=== PATIENT | female | born 1955 | race Asian ===

== ENCOUNTER 2017-12-18 00:07 | Emergency (ER) | payer SELFPAY ==
[2017-12-18] MEDS ORDERED: NS 0.9% 1000 ML* 2,000 ML IV ONE (00:39)
[2017-12-18] MEDS ORDERED: Ondansetron INJ* 2 MG/ML VIAL IV ONE (00:39)
[2017-12-18] MEDS ORDERED: Pantoprazole IV* 40 MG IV ONE (00:39)
[2017-12-18] MEDS ORDERED: Morphine INJ* 10 MG/ML 1 ML CARPUJECT IV ONE (00:39)
[2017-12-18 01:09] LABS: ABS Basophils 0 10^3/ul (0-0.2); ABS Eosinophils 0 10^3/ul (0-0.6); ABS Lymphocytes 1.5 10^3/ul (1.0-4.8); ABS Monocytes 0.4 10^3/ul (0-0.8); ABS Neutrophils 9.2 10^3/ul (1.5-7.7); ABS Nucleated RBC 0 10^3/ul; Eosinophil % 0.1 % (0-6); Hematocrit 40 % (35-47); Hemoglobin 13.4 g/dl (12.0-16.0); Lymphocyte % 13.6 % (25-47); Mean Corpuscular HGB Conc 34 g/dl (31-36); Mean Corpuscular Hemoglobin 30 pg (27-31); Mean Corpuscular Volume 88 fL (80-97); Mean Platelet Volume 7.6 um3 (7.4-10.4); Nucleated Red Blood Cells % 0; Platelet Count 230 10^3/ul (150-450); Red Blood Count 4.52 10^6/ul (4.0-5.4); Red Cell Distribution Width 13 % (10.5-15); White Blood Count 11.2 10^3/ul (3.5-10.8)
[2017-12-18] MEDS ORDERED: Morphine VIAL* 4 MG/ML VIAL (1 ml vial) IV ONE (01:15)
[2017-12-18 01:20] LABS: INR 0.9 (0.77-1.02)
[2017-12-18 01:26] LABS: EGFR Non-African American 83.4 (>60)
--- NOTE | 2017-12-18 02:08 | ED ---
Ryley Lopez Thomas, scribed for Weston Garay MD on 12/18/17 at 0042 . Abdominal Pain/Female - HPI Summary HPI Summary: The patient is a 62 year old female complaining of abdominal pain that began today at 20:00. She ate unknown vegetation that she found on the street today at 16:00. The pain is alleviated by pressing on the abdomen. She vomited twice. The patient also complains of diaphoresis. The patient denies diarrhea, back pain, fever, and chills. Past surgical history includes appendectomy and hysterectomy. - History of Current Complaint Chief Complaint: EDAbdPain Stated Complaint: ABD PAIN Time Seen by Provider: 12/18/17 00:25 Hx Obtained From: Patient Onset/Duration: Lasting Hours, Still Present Timing: Constant Severity Currently: Severe Pain Intensity: 8 Pain Scale Used: 0-10 Numeric Aggravating Factor(s): Nothing Alleviating Factor(s): Other: - Pressing on the abdomen Associated Signs and Symptoms: Positive: Diaphoresis, Vomiting. Negative: Diarrhea, Other: - back pain, fever, chills Allergies/Adverse Reactions: Allergies Allergy/AdvReac Type Severity Reaction Status Date / Time No Known Allergies Allergy Verified 12/18/17 00:10 PMH/Surg Hx/FS Hx/Imm Hx Endocrine/Hematology History: Denies: Hx Diabetes Cardiovascular History: Denies: Hx Hypertension - Surgical History Surgery Procedure, Year, and Place: Appendectomy, hysterectomy Infectious Disease History: No Infectious Disease History: Denies: Traveled Outside the [place] in Last 30 Days - Family History Known Family History: Positive: Other - Patient denies relevant FHx - Social History Lives: With Family Alcohol Use: None Substance Use Type: Reports: None Smoking Status (MU): Never Smoked Tobacco Review of Systems Negative: Fever, Chills Positive: Abdominal Pain, Vomiting. Negative: Diarrhea Negative: Other - back pain All Other Systems Reviewed And Are Negative: Yes Physical Exam - Summary Physical Exam Summary: VITAL SIGNS: Reviewed. GENERAL: Patient is a well-developed and nourished female who is lying comfortable in the stretcher. She appears elder. Patient is not in any acute respiratory distress. HEAD AND FACE: No signs of trauma. No ecchymosis, hematomas or skull depressions. No sinus tenderness. EYES: PERRLA, EOMI x 2, No injected conjunctiva, no nystagmus. EARS: Hearing grossly intact. Ear canals and tympanic membranes are within normal limits. MOUTH: Oropharynx within normal limits. NECK: Supple, trachea is midline, no adenopathy, no JVD, no carotid bruit, no c- spine tenderness, neck with full ROM. CHEST: Symmetric, no tenderness at palpation LUNGS: Clear to auscultation bilaterally. No wheezing or crackles. CVS: Regular rate and rhythm, S1 and S2 present, no murmurs or gallops appreciated. ABDOMEN: Soft, non-tender. There is abdominal distention. No rebound no guarding , and no masses palpated. Bowel sounds are hypoactive. EXTREMITIES: FROM in all major joints, no edema, no cyanosis or clubbing. NEURO: Alert and oriented x 3. No acute neurological deficits. Speech is normal and follows commands. SKIN: She appears pale. Triage Information Reviewed: Yes Vital Signs On Initial Exam: Initial Vitals Temp Pulse Resp BP Pulse Ox 97.8 F 68 20 135/87 99 12/18/17 00:10 12/18/17 00:10 12/18/17 00:10 12/18/17 00:10 12/18/17 00:10 Vital Signs Reviewed: Yes Diagnostics - Vital Signs Vital Signs Temp Pulse Resp BP Pulse Ox 12/18/17 00:30 65 145/87 96 12/18/17 00:24 68 96 12/18/17 00:10 97.8 F 68 20 135/87 99 - Laboratory Result Diagrams: 12/18/17 01:04 12/18/17 01:04 Lab Statement: Any lab studies that have been ordered have been reviewed, and results considered in the medical decision making process. - EKG 00:25 Cardiac Rate: NL EKG Rhythm: Sinus Rhythm - at 64 BPM EKG Interpretation: Nonspecific T-wave changes in inferior leads. Re-Evaluation - Re-Evaluation First Eval Re-Evaluation Time: 02:00 Change: Improved Comment: She feels betteer, tolerated PO, and would like to go home. Abdominal Pain Fem Course/Dx - Course Course Of Treatment: The patient is a 62 year old female complaining of abdominal pain that began today at 20:00. She ate unknown vegetation that she found on the street today at 16:00. She vomited twice. In the ED course, the patient was given IV fluids, morphine, Zofran, and Protonix. Bloodwork and EKG were obtained. I ordered a CT Abdomen/Pelvis, but the patient refused the scan. She thinks that she does not need it. The patient says if she feels worse, she will have the scan. At re-evaluation at 02:00, the patient feels better, tolerated PO intake, and would like to go home. She will be discharged home to follow up with her primary care provider. - Diagnoses Provider Diagnoses: Gastroenteritis Discharge - Sign-Out/Discharge Documenting (check all that apply): Discharge/Admit/Transfer - Discharge Plan Condition: Stable Disposition: HOME Patient Education Materials: Gastroenteritis (ED) Referrals: [facility]ERR[facility] [Outside] - 3 Days Additional Instructions: Follow up with your primary care physician in three days. If you do not have a primary care provider, you can use the [facility] physician referral service to find one and make an appointment. Return to the emergency department for any new or worsening symptoms. The documentation as recorded by the Ryley garcia Thomas accurately reflects the service I personally performed and the decisions made by me, Weston Garay MD.
[2017-12-18 02:23] VITALS: BP 159/99
== END 2017-12-18 02:15 | disposition home or self-care (01) ==
LOC: ED 00:07
DX: K52.9 Noninfective gastroenteritis and colitis, unspecified (principal); R10.9 Unspecified abdominal pain; R11.0 Nausea
CPT/HCPCS: 36415; 80053; 82150; 82550; 83605; 83690; 83735; 84484; 85025; 85610; 85730; 86140; 93005; 96374; 96375; 99284; J2270; J2405

== ENCOUNTER 2017-12-19 15:12 | Emergency (ER) | payer SELFPAY ==
--- NOTE | 2017-12-19 15:29 | UC ---
Nausea/Vomiting/Diarrhea HPI - HPI Summary HPI Summary: 62 y/o female presents to the urgent care accompany by daughter who translates c /o nausea and vomiting w/ abdominal pain since yesterday. Daughter states her mother ate a vegetation she found in the street and then she developed episodes vomiting, diaphoresis and severe abdominal pain around 1600Pm yesterday. Pt was seen in the ER and got IV fluids, Morphin, Protonix and Blood work. She was D/ C home Dx w/ Gastroenteritis. She felt better over night but this morning when she drank water, vomiting returned w/ 4 episodes. last episodes was about 1hr ago. Pt has not eaten anything since yesterday. Pt denies hematemesis, fever, SOB, chest pain, diarrhea, urinary symptoms, dizziness. Last BM was normal 4 days ago. She usually does a BM every 2-3 days. - History of Current Complaint Chief Complaint: UCGI Stated Complaint: VOMITING Time Seen by Provider: 12/19/17 15:27 Hx Obtained From: Patient, Family/Search Engine Optimization Manager - daughter Onset/Duration: Gradual Onset, Lasting Days - 1 day, Still Present, Worse Since - this morning Timing: Constant Severity Initially: Mild Severity Currently: Moderate Pain Intensity: 6 Pain Scale Used: 0-10 Numeric Location: Diffuse - all abdomen Character: Sharp, Cramping Alleviating Factor(s): NPO Nausea/Vomiting Presence: Nauseated, Vomiting Vomiting Frequency: Every 1-2 hours Nausea/Vomiting Duration: 12-24 hours Vomiting Characteristics: Bilious Diarrhea Presence: No - Risk Factors Influenza Risk Factors: Negative Surgical Obstruction Risk Factor(s): Prior Abdominal Surgery - appendectomy and hysterectomy 10 years ago - Allergies/Home Medications Allergies/Adverse Reactions: Allergies Allergy/AdvReac Type Severity Reaction Status Date / Time No Known Allergies Allergy Verified 12/19/17 15:23 Home Medications: Home Medications Meclizine TAB* [Antivert 12.5 TAB*] 25 mg PO ONCE 12/19/17 [History Confirmed ] Omeprazole CAP* [Prilosec CAP* 20 MG] 1 tab PO ONCE 12/19/17 [History Confirmed 12/19/17] PMH/Surg Hx/FS Hx/Imm Hx Previously Healthy: Yes - Daughter denies PMHX - Surgical History Surgical History: Yes Surgery Procedure, Year, and Place: Appendectomy, hysterectomy - Family History Known Family History: Positive: Hypertension - Social History Occupation: Unemployed Lives: With Family Alcohol Use: None Substance Use Type: None Smoking Status (MU): Never Smoked Tobacco Review of Systems Constitutional: Chills, Fatigue Skin: Negative Eyes: Negative ENT: Negative Respiratory: Negative Cardiovascular: Negative Gastrointestinal: Abdominal Pain - diffuse in all quadrants, Vomiting, Nausea Genitourinary: Negative Motor: Negative Neurovascular: Negative Musculoskeletal: Negative Neurological: Negative Psychological: Negative Is Patient Immunocompromised?: No All Other Systems Reviewed And Are Negative: Yes Physical Exam - Summary Physical Exam Summary: Vital Signs Reviewed: Yes General:Patient is a well developed and nourished female who is sitting comfortable in the examining table. Patient is not in any acute respiratory distress. Eyes: Positive: Conjunctiva Clear - PERRLA, EOMI, fundi grossly normal ENT: Positive: Normal ENT inspection, Hearing grossly normal, Pharynx normal, TMs normal Neck: Positive: Supple, Nontender, No Lymphadenopathy Respiratory: Positive: Chest non-tender, Lungs clear, Normal breath sounds, No respiratory distress Cardiovascular: Positive: RRR,S1 and S2 present, No Murmur, Pulses Normal, Brisk Capillary Refill Abdomen Description: Positive: Abd: mild distention. No surface trauma, scars from previous appendectomy, incisions. hyperactive bowel sounds present in all four quadrants. Moderate tenderness over all four quadrants,LLQ>RLQ, no guarding, no rigidity to palpation. No masses palpated, no pulsation in epigastric area. No organomegaly. Negative Parsons signs. No periumbilical tenderness. No rebound in the lower quadrants. NT over McBurneys point. Good femoral pulses bilaterally. No hernia noted. No CVAT bilaterally Musculoskeletal: Positive: Strength Intact, ROM Intact, No Edema,FROM in all major joints, no edema, no cyanosis or clubbing. Neuro: Alert and oriented x 3. No acute neurological deficits. Speech is normal. Psychological: WNL Skin: Dry and warm Triage Information Reviewed: Yes Vital Signs: Initial Vital Signs Temp 99.2 F 12/19/17 15:19 Pulse 125 12/19/17 15:19 Resp 18 12/19/17 15:19 BP 130/91 12/19/17 15:19 Pulse Ox 96 12/19/17 15:19 Naus/Vom/Diarrhea Course/Dx - Course Course Of Treatment: 62 y/o female presents to the urgent care accompany by daughter who translates c/o nausea and vomiting w/ mild abdominal pain since yesterday. Daughter states her mother ate a vegetation she found in the street and then she developed episodes vomiting, diaphoresis and severe abdominal pain around 1600Pm yesterday. Pt was seen in the ER and got IV fluids, Morphin, Protonix and Blood work. She was D/C home Dx w/ Gastroenteritis. She felt better over night but this morning when she drank water, vomiting returned w/ 4 episodes. last episodes was about 1hr ago. Pt has not eaten anything since yesterday. pt denies hematemesis, fever, SOB, chest pain, diarrhea, urinary symptoms, dizziness. Last BM was normal 4 days ago. She usually does a BM every 2-3 days. Pt w/ Hx of appendectomy and hysterectomy. Hx obtained. Pt w/ Abdominal mild distention. No surface trauma, scars from previous appendectomy , incisions. hyperactive bowel sounds present in all four quadrants. Moderate tenderness over all four quadrants,LLQ>RLQ, no guarding, no rigidity to palpation. No masses palpated, no pulsation in epigastric area. No organomegaly. Negative Parsons signs on examination. At this moment no CT available. I recommended Daughter and PT abdominal X-ray to r/o obstruction since Hx of previous surgery and no BM for the past 4 days. Daughter concerned about the cost of X-rays and test since she can't affort it. I discussed Pt's symptoms w/ Dr lott and she recommended to alleviate Pt's symptoms w/ IV fluids and Zofran PO until daughter decides. Pt given fluids, Omeprasole and Zofram. Pt felt better. However during second evaluation abdomen more distended and more Tender to palpation over the LLQ w/ decrease bowel sound. Dr Lott also evaluated Pt. I spoke to daughter and explaind the need to to at least the abdominal X-ray. Daughter hesitant. Then she agreed. Abdominal X-ray ordered, Impression: Small bowel obstruction w/ large amount of stool on the colon. Daughter and Pt educated on X-ray results and strongly advised to go to the ER for further management. Daughter still hesitant and called [facility]. Daughter and Pt declined ambulance transfer. Daughter states she will take her mother to the ER by car. They were explained the Risks and benefits of not going to the ER and not taking the ambulance transfer. Pt signed AMA, but states she she will take her mother to the ER. Pt left the clinic hemodynamically stable , A&OX3 and ambulating. - Differential Dx/Diagnosis Differential Diagnoses - Female: Bowel Obstruction, Constipation, Gall Bladder Disease, Gastroenteritis (Viral), Gastroenteritis (Bacterial), Vomiting, Peptic Ulcer Disease, Gastritis, Dehydration, Cholelithiasis Provider Diagnoses: 1- Small Bowel obstruction. 2- Stool impaction. 4- Acute nasusea and vomiting Condition At Discharge: Stable Discharge - Sign-Out/Discharge Documenting (check all that apply): Discharge/Admit/Transfer - transfer to [facility] ER by daughter's car. Pt declined ambulance transfer - Discharge Plan Condition: Stable Disposition: TRANS HIGHER LVL OF CARE FAC Patient Education Materials: Constipation (ED), Bowel Obstruction (ED) Referrals: No Primary Care Phys,NOPCP [Primary Care Provider] - Additional Instructions: I think you need a higher level or care for your presenting symptoms. I highly recommend you to go to the ER for further evaluation and treatment. The risks of not going can be , sepsis, bowel perforation, peritonitis etc. I spoke to the ER attending FADI Espinoza. . They are expecting you. - Billing Disposition and Condition Condition: STABLE Disposition: [facility]
[2017-12-19] MEDS ORDERED: NS 0.9% 1000 ML* 1,000 ML IV ONE (16:00)
[2017-12-19] MEDS ORDERED: Ondansetron INJ* 2 MG/ML VIAL IV ONE (16:01)
[2017-12-19] MEDS ORDERED: Famotidine TAB* 20 MG PO ONE (16:09)
[2017-12-19 17:54] VITALS: BP 0/0
--- NOTE | 2017-12-19 18:35 | RAD ---
HISTORY: Acute abdominal pain COMPARISONS: None VIEWS: Frontal supine and upright views of the abdomen. FINDINGS: BOWEL: There are dilated loops of small bowel within the upper abdomen, with a paucity of distal bowel gas. There are multiple differential air-fluid levels. There is large amount of stool within the colon. CALCULI: There are no abnormal calculi. BONES AND SOFT TISSUES: There are no osseous abnormalities. OTHER FINDINGS: The lung bases are clear. There is no subphrenic gas. IMPRESSION: 1. SMALL BOWEL OBSTRUCTION. 2. LARGE AMOUNT OF STOOL WITHIN THE COLON.
== END 2017-12-19 19:40 | disposition short-term general hospital (02) ==
LOC: UCEAST 15:12
DX: K56.609 Unspecified intestinal obstruction, unspecified as to partial versus complete obstruction (principal); K59.00 Constipation, unspecified; R11.2 Nausea with vomiting, unspecified; R53.83 Other fatigue
CPT/HCPCS: 74019; 96360; 96374; 99212; A9270-GY; G0463; J2405

== ENCOUNTER 2017-12-19 20:40 | Inpatient (IN) | payer SELFPAY ==
[2017-12-19 22:24] LABS: Hematocrit 42 % (35-47); Hemoglobin 14.3 g/dl (12.0-16.0); Mean Corpuscular HGB Conc 34 g/dl (31-36); Mean Corpuscular Hemoglobin 30 pg (27-31); Mean Corpuscular Volume 88 fL (80-97); Red Blood Count 4.78 10^6/ul (4.0-5.4); Red Cell Distribution Width 13 % (10.5-15); White Blood Count 15.7 10^3/ul (3.5-10.8)
[2017-12-19 22:25] LABS: ABS Basophils 0 10^3/ul (0-0.2); ABS Eosinophils 0 10^3/ul (0-0.6); ABS Lymphocytes 1.7 10^3/ul (1.0-4.8); ABS Monocytes 1.3 10^3/ul (0-0.8); ABS Neutrophils 12.6 10^3/ul (1.5-7.7); ABS Nucleated RBC 0 10^3/ul; Eosinophil % 0 % (0-6); Lymphocyte % 10.8 % (25-47); Mean Platelet Volume 7.7 um3 (7.4-10.4); Nucleated Red Blood Cells % 0; Platelet Count 244 10^3/ul (150-450)
[2017-12-19 22:38] LABS: EGFR Non-African American 82.1 (>60)
--- NOTE | 2017-12-19 23:09 | ED ---
GI/ HPI - HPI Summary HPI Summary: 62F presents from urgent care with SBO. She has never had an SBO before. She admits to vomiting for the past 2 days. She has not been able to keep anything down. She has not a bowel movement 4 days. She is not passing gas. She denies any dysuria. No hematuria. No flank pain. No abnormal vaginal discharge. No chest pain or shortness of breath. No fevers. No medical conditions. She has had her uterus and appendix removed 10 years ago. She was seen here yesterday and given nausea medication but has not been able to keep anything down. - History of Current Complaint Chief Complaint: EDAbdPain Time Seen by Provider: 12/19/17 22:37 Stated Complaint: VOMITING/ABD PAIN Pain Intensity: 99 - Allergy/Home Medications Allergies/Adverse Reactions: Allergies Allergy/AdvReac Type Severity Reaction Status Date / Time No Known Allergies Allergy Verified 12/19/17 15:23 PMH/Surg Hx/FS Hx/Imm Hx Endocrine/Hematology History: Denies: Hx Diabetes Cardiovascular History: Denies: Hx Hypertension Respiratory History: Denies: Hx Asthma GI History: Denies: Other GI Disorders - Surgical History Surgery Procedure, Year, and Place: Appendectomy, hysterectomy Infectious Disease History: No Infectious Disease History: Denies: Traveled Outside the [place] in Last 30 Days - Family History Known Family History: Positive: Other - Patient denies relevant FHx - Social History Alcohol Use: None Substance Use Type: Reports: None Smoking Status (MU): Never Smoked Tobacco Review of Systems Negative: Fever Negative: Chest Pain Negative: Shortness Of Breath Positive: Abdominal Pain, Vomiting, Nausea. Negative: Diarrhea All Other Systems Reviewed And Are Negative: Yes Physical Exam Triage Information Reviewed: Yes Vital Signs On Initial Exam: Initial Vitals Temp Pulse Resp BP Pulse Ox 97.8 F 120 16 137/90 99 12/19/17 20:49 12/19/17 20:49 12/19/17 20:49 12/19/17 20:49 12/19/17 20:49 Vital Signs Reviewed: Yes Appearance: Positive: Well-Appearing Skin: Positive: Warm, Dry Head/Face: Positive: Normal Head/Face Inspection Eyes: Positive: Normal, Conjunctiva Clear Respiratory/Lung Sounds: Positive: Clear to Auscultation, Breath Sounds Present Cardiovascular: Positive: Normal, RRR Abdomen Description: Positive: Nontender, Soft Bowel Sounds: Positive: Present Musculoskeletal: Positive: Normal Neurological: Positive: Normal Psychiatric: Positive: Normal Diagnostics - Vital Signs Vital Signs Temp Pulse Resp BP Pulse Ox 12/19/17 20:49 97.8 F 120 16 137/90 99 - Laboratory Lab Results: Lab Results 12/19/17 12/19/17 12/19/17 Range/Units 22:14 22:14 22:14 WBC 15.7 H (3.5-10.8) 10^3/ul RBC 4.78 (4.0-5.4) 10^6/ul Hgb 14.3 (12.0-16.0) g/dl Hct 42 (35-47) % MCV 88 (80-97) fL MCH 30 (27-31) pg MCHC 34 (31-36) g/dl RDW 13 (10.5-15) % Plt Count 244 (150-450) 10^3/ul MPV 7.7 (7.4-10.4) um3 Neut % (Auto) 80.7 (38-83) % Lymph % (Auto) 10.8 L (25-47) % Hays % (Auto) 8.3 H (0-7) % Eos % (Auto) 0 (0-6) % Baso % (Auto) 0.2 (0-2) % Absolute Neuts (auto) 12.6 H (1.5-7.7) 10^3/ul Absolute Lymphs (auto) 1.7 (1.0-4.8) 10^3/ul Absolute Monos (auto) 1.3 H (0-0.8) 10^3/ul Absolute Eos (auto) 0 (0-0.6) 10^3/ul Absolute Basos (auto) 0 (0-0.2) 10^3/ul Absolute Nucleated RBC 0 10^3/ul Nucleated RBC % 0 Sodium 136 L (139-145) mmol/L Potassium 3.9 (3.5-5.0) mmol/L Chloride 101 (101-111) mmol/L Carbon Dioxide 25 (22-32) mmol/L Anion Gap 10 (2-11) mmol/L BUN 32 H (6-24) mg/dL Creatinine 0.72 (0.51-0.95) mg/dL Est GFR ( Amer) 105.6 (>60) Est GFR (Non-Af Amer) 82.1 (>60) BUN/Creatinine Ratio 44.4 H (8-20) Glucose 151 H (70-100) mg/dL Lactic Acid 0.9 (0.5-2.0) mmol/L Calcium 9.1 (8.6-10.3) mg/dL Total Bilirubin 0.90 (0.2-1.0) mg/dL AST 17 (13-39) U/L ALT 11 (7-52) U/L Alkaline Phosphatase 54 (34-104) U/L C-Reactive Protein 239.78 H (< 5.00) mg/L Total Protein 7.3 (6.4-8.9) g/dL Albumin 3.8 (3.2-5.2) g/dL Globulin 3.5 (2-4) g/dL Albumin/Globulin Ratio 1.1 (1-3) Lipase < 10 L (11.0-82.0) U/L Result Diagrams: 12/19/17 22:14 12/19/17 22:14 Lab Statement: Any lab studies that have been ordered have been reviewed, and results considered in the medical decision making process. GIGU Course/Dx - Course Course Of Treatment: 62F presents from urgent care with SBO. She has never had an SBO before. She admits to vomiting for the past 2 days. She has not been able to keep anything down. She has not a bowel movement 4 days. She is not passing gas. She denies any dysuria. No hematuria. No flank pain. No abnormal vaginal discharge. No chest pain or shortness of breath. No fevers. No medical conditions. She has had her uterus and appendix removed 10 years ago. She was seen here yesterday and given nausea medication but has not been able to keep anything down. Exam nontender abdomen although was given pain and nausea medication at convenient care. Her white blood cell count more elevated than yesterday. X-ray at urgent care shows a small bowel obstruction. Discussed with Dr. Solorio who agrees to admit. - Diagnoses Differential Diagnoses - Female: Bowel Obstruction, Gastroenteritis (Viral), Urinary Tract Infection Provider Diagnoses: SBO (small bowel obstruction) Discharge - Sign-Out/Discharge Documenting (check all that apply): Discharge/Admit/Transfer - Discharge Plan Condition: Stable Disposition: ADMITTED TO [facility] Referrals: No Primary Care Phys,NOPCP [Primary Care Provider] - - Billing Disposition and Condition Condition: STABLE Disposition: [facility]
[2017-12-19] MEDS ORDERED: NS 0.9% 1000 ML* 1,000 ML IV ONE (23:12)
[2017-12-19] MEDS ORDERED: Ondansetron INJ* 2 MG/ML VIAL IV ONE (23:13)
[2017-12-19] MEDS ORDERED: NS 0.9% 1000 ML* 1,000 ML IV SCH (23:45)
[2017-12-19] MEDS ORDERED: Ondansetron 40 MG VIAL* 2 MG/ML 20 ML VIAL IV PRN (23:48)
[2017-12-19] MEDS ORDERED: Morphine VIAL* 4 MG/ML VIAL (1 ml vial) IV PRN (23:48)
[2017-12-19] MEDS ORDERED: PROCHLORPERAZINE INJ 5 MG/ML 2 ML VIAL IV PRN (23:48)
[2017-12-20] MEDS ORDERED: Lidocaine 2% JELLY* 6 ML JELLY TOPICAL ONE (00:40)
[2017-12-20] MEDS ORDERED: Lidocaine 2% JELLY* 30 GM TUBE TOPICAL ONE (00:41)
--- NOTE | 2017-12-20 04:09 | HP ---
HISTORY AND PHYSICAL: DATE OF ADMISSION: 12/19/17 PRIMARY CARE PROVIDER: None locally. CHIEF COMPLAINT: Nausea, vomiting, abdominal pain. HISTORY OF PRESENT ILLNESS: Ms. Acevedo is a 62-year-old female visiting [place] from [place], who presents to the emergency room from Urgent Care with complaints of nausea, vomiting, abdominal pain. All of t he history is obtained from the patient's daughter, as the patient does not speak Czech. Karen rojas, she sleeps during the bulk of my history and exam. According to patient's daughter, Friday e vening of this week, 12/17/17, the patient began to have nausea, vomiting, and abdominal pain. The p atient has not been eating or drinking anything. It will come right back up. The patient's daughter notes that her abdomen has become more distended. PAST MEDICAL HISTORY: None. PAST SURGICAL HISTORY: 1. Hysterectomy. 2. Appendectomy. ALLERGIES: No known drug allergies. MEDICATIONS: None. FAMILY HISTORY: Mom of a stroke, dad of heart disease. SOCIAL HISTORY: The patient does not smoke, she does not drink alcohol. She is , she has 1 c hild that is her daughter who is present currently. Her name is Corinna Barillas. REVIEW OF SYSTEMS: Unobtainable from the patient due to language barrier and she is sleeping. PHYSICAL EXAMINATION GENERAL: The patient is a well-developed middle-aged female, seen lying flat in the stretcher, in no acute distress and sleeping. VITAL SIGNS: Blood pressure 137/90, pulse 120, respirations 16, temp 97.8, O2 sat 99% on room air. HEENT: Pupils are equal and round. Extraocular muscles are intact. Oropharynx is clear. Oral muco sa is moist. There is no submandibular, cervical or supraclavicular adenopathy. Thyroid is not enla rged. No thyroid nodules are noted. PULMONARY: Lungs are clear to auscultation anteriorly. CARDIAC: Normal S1, S2. Heart rate is mildly tachycardic. There are no murmurs. There is no lower extremity edema. ABDOMEN: Bowel sounds are present. Abdomen is soft. She is moderately distended. She is moderately tender to palpation. MUSCULOSKELETAL: There is no cyanosis or clubbing of the digits. There is full active range of jesus on of all 4 extremities. NEUROLOGIC: Cranial nerves II through XII are grossly intact. Sensation is intact to light touch th roughout. Strength is 5/5 and symmetric in both upper and lower extremities bilaterally. SKIN: Warm and dry. There are no rashes. PSYCH: The patient is sleeping, but does awaken to cooperate with my exam. DIAGNOSTIC STUDIES/LAB DATA: WBC 15.7, hemoglobin 14.3, hematocrit 42, platelets 244,000. Sodium 1 36, potassium 3.9, chloride 101, CO2 of 25, BUN 32, creatinine 0.72, glucose 151, lactic acid 0.9, ca lcium 9.1, bilirubin 0.9. AST 17, ALT 11, alk phos 54, CRP 239.78, albumin 3.8, lipase less than 10. Abdomen x-ray reveals a small bowel obstruction and a large amount of stool within the colon. ASSESSMENT AND PLAN: Ms. Acevedo is a 62-year-old female who has a history of hysterectomy and appendecto my and no other medical conditions who presents to initially Urgent Care followed by the emergency ro om for small bowel obstruction. 1. Small bowel obstruction. This is likely related to adhesions secondary to her previous surgeries . At this point, an NG tube will be placed. It will be hooked up to low intermittent wall suction. An abdominal x-ray will be obtained tomorrow morning to evaluate for any resolution of the obstructi on. She will be made n.p.o. She will be continued on normal saline at 100 mL per hour. The patient did have a low grade fever at Urgent Care and has a leukocytosis, however, I do not believe that this represents an infectious process. For now, I will hold off on antibiotic therapy, but I will monito r her symptoms. 2. DVT prophylaxis. According to the Adult Thrombosis Prophylaxis Risk Factor Assessment Guide, the patient has a total risk factor score of 2 making her moderate risk. She will be placed on heparin 5000 units subcutaneous q.8 hours. 3. Code status is full. TIME SPENT: Fifty minutes was spent admitting this patient. [id number]/[facility] #: [id number]
[2017-12-20 05:25] LABS: Hematocrit 39 % (35-47); Hemoglobin 13.1 g/dl (12.0-16.0); Mean Corpuscular HGB Conc 34 g/dl (31-36); Mean Corpuscular Hemoglobin 30 pg (27-31); Mean Corpuscular Volume 89 fL (80-97); Mean Platelet Volume 7.5 um3 (7.4-10.4); Platelet Count 202 10^3/ul (150-450); Red Cell Distribution Width 14 % (10.5-15); White Blood Count 12.1 10^3/ul (3.5-10.8)
[2017-12-20 05:36] LABS: EGFR Non-African American 99.4 (>60)
[2017-12-20] MEDS ORDERED: Heparin VIAL(*) 5000 UNITS/ML VIAL (FIVE THOUSAND) SUBCUT SCH (06:00)
--- NOTE | 2017-12-20 08:03 | RAD ---
INDICATION: Nasogastric tube placement. COMPARISON: Comparison is made with a prior abdominal series from December 19, 2017. TECHNIQUE: A single portable view of the chest was centered at the level of the diaphragms to assess nasogastric tube placement. FINDINGS: The heart appears within normal limits in size. The lungs are underinflated. There are small infiltrates at both lung bases suggestive of atelectasis. The distal portion of a nasogastric tube is seen. The catheter projects over the stomach. The distal tip projects in the region of the antrum or pylorus. IMPRESSION: STATUS POST NASOGASTRIC TUBE PLACEMENT NOTED.
[2017-12-20 10:36] VITALS: BP 115/58
--- NOTE | 2018-01-03 06:25 | DS ---
DISCHARGE SUMMARY: DATE OF ADMISSION: DATE OF DISCHARGE: 12/20/17. HISTORY: This 62-year-old woman presented with nausea, vomiting, and abdominal pain. Evaluation in the emergency room revealed small-bowel obstruction. The patient has a history of prior abdominal surgery and adhesions were thought to be the likely cause of the small-bowel obstruction. An NG tube was placed and hooked up to low intermittent suction. She was given intravenous fluids. The following morning, she signed out AMA before she could be seen by myself and before followup x-rays could be obtained. FINAL DIAGNOSIS: Small-bowel obstruction. DISCHARGE MEDICATIONS: None given. DISPOSITION: The patient signed out AMA. [id number]/[facility] #: [id number] MTDD
== END 2017-12-20 08:43 | disposition left against medical advice (07) | DRG 390 ==
LOC: ED 20:40 → SSU 23:48
PROVIDERS: ADMIT Hospitalist; ATTEND Hospitalist
PROC: 0D9670Z Drainage of Stomach with Drainage Device, Via Natural or Artificial Opening (ICD-10-PCS; principal; 2017-12-19)
DX: K56.609 Unspecified intestinal obstruction, unspecified as to partial versus complete obstruction (principal); D72.829 Elevated white blood cell count, unspecified; Z90.710 Acquired absence of both cervix and uterus; Z82.49 Family history of ischemic heart disease and other diseases of the circulatory system; Z90.89 Acquired absence of other organs; Z82.3 Family history of stroke
CPT/HCPCS: 36415; 71045; 80048; 80053; 83605; 83690; 85025; 85027; 86140; 99283; J1644; J2405